=== PATIENT | male | born 1960 | race Caucasian/White ===

== ENCOUNTER 2020-01-27 06:08 | Day surgery (SDC) | payer OTHER ==
[~2020-01-27] VITALS: Ht 170.2 cm; Wt 97.5 kg
[~2020-01-27 06:08] MED LIST: CELE1CAP4 PO; FORT10GE TD; OMEP1CAP73 PO; RANI15TA PO
[2020-01-27] MEDS ORDERED: EPINEPHrine INJ 1 MG/ML 1ML AMP ONE (06:09)
[2020-01-27] MEDS ORDERED: LIDOCAINE 1% MDV 20ML VIAL ONE (06:09)
[2020-01-27] MEDS ORDERED: ROPIvacaine 0.5% 30ML INJECTION (J2795 PER 1MG) ONE (06:09)
[2020-01-27] MEDS ORDERED: fentaNYL 100 MCG/2 ML INJECTION (J3010) As Ordered ONE ×2 (06:42→07:08)
[2020-01-27] MEDS ORDERED: MIDAZOLAM INJ 2MG/2ML VIAL (J2250 PER 1MG) As Ordered ONE ×2 (06:42→07:08)
[2020-01-27] MEDS ORDERED: ceFAZolin SOD 2 GM in IV 1 EA IV ONE (07:00)
[2020-01-27] MEDS ORDERED: LR 1,000 ML IV ONE (07:00)
[2020-01-27] MEDS ORDERED: LIDOCAINE 2% 100MG/5ML SDV (FOR ANES.) As Ordered ONE (07:08)
[2020-01-27] MEDS ORDERED: ONDANSETRON 4MG/2ML VIAL As Ordered ONE (07:08)
[2020-01-27] MEDS ORDERED: ROCURONIUM BROMIDE 50 MG/5 ML VIAL As Ordered ONE (07:08)
[2020-01-27] MEDS ORDERED: dexameTHASONE 4 MG/ML 1ML VIAL (J1100 PER 1MG) As Ordered ONE (07:08)
[2020-01-27] MEDS ORDERED: propofoL 200 MG/20 ML VIAL As Ordered ONE (07:08)
[2020-01-27] MEDS ORDERED: EPINEPHrine INJ 1 MG/ML 1ML AMP As Ordered ONE (07:11)
[2020-01-27] MEDS ORDERED: fentaNYL 100 MCG/2 ML INJECTION (J3010) IV ONE (07:45)
[2020-01-27] MEDS ORDERED: MIDAZOLAM INJ 2MG/2ML VIAL (J2250 PER 1MG) IV ONE (07:45)
[2020-01-27] MEDS ORDERED: ACETAMINOPHEN 1000MG 100ML IV BTL (OFIRMEV) (J0131 PER 10MG) As Ordered ONE (07:52)
[2020-01-27] MEDS ORDERED: KETAMINE HCL 200 MG/20 ML VIAL As Ordered ONE (08:06)
[2020-01-27] MEDS ORDERED: SUGAMMADEX SODIUM 500 MG/5 ML VIAL (BRIDION) As Ordered ONE (08:07)
[2020-01-27] MEDS ORDERED: KETOROLAC 60MG 2ML VIAL As Ordered ONE (08:07)
[2020-01-27] MEDS ORDERED: HYDROmorphone HCL 2 MG/ML 1ML VIAL (J1170) As Ordered ONE (08:12)
[2020-01-27] MEDS ORDERED: ONDANSETRON 4MG/2ML VIAL IV PRN (11:00)
[2020-01-27] MEDS ORDERED: fentaNYL 100 MCG/2 ML INJECTION (J3010) IV PRN (11:00)
[2020-01-27] MEDS ORDERED: oxyCODONE 5MG TAB PO PRN (11:00)
[2020-01-27] MEDS ORDERED: LR 1,000 ML IV SCH ×2 (11:00)
[2020-01-27 12:30] VITALS: BP 109/76
--- NOTE | 2020-01-28 07:18 | RO ---
DATE OF OPERATION: 01/27/2020 PREOPERATIVE DIAGNOSIS: 1. Left shoulder partial thickness rotator cuff tear. 2. Left shoulder impingement. 3. Left shoulder acromioclavicular (AC) joint arthritis. 4. Left shoulder biceps tendinopathy. POSTOPERATIVE DIAGNOSIS: 1. Left shoulder partial thickness rotator cuff tear. 2. Left shoulder impingement. 3. Left shoulder acromioclavicular (AC) joint arthritis. 4. Left shoulder biceps tendinopathy. PROCEDURE: 1. Left shoulder arthroscopic rotator cuff repair (subscapularis). 2. Left shoulder arthroscopic rotator cuff debridement (supraspinatus). 3. Left shoulder open subpectoral biceps tenodesis. 4. Left shoulder arthroscopic subacromial decompression with acromioplasty. 5. Left shoulder arthroscopic distal clavicle excision. IMPLANTS: Arthrex 4.75 mm PEEK SwiveLock anchor times 1 and Arthrex proximal biceps button times 1. CLOSURE: Monocryl and nylon. PROCEDURE: The patient identified in the preoperative holding area. The left shoulder was marked. He was reporting increasing pain in the area of his AC joint. He did have advanced AC joint arthritis on his x-ray and MRI. Written informed consent had been obtained for surgery previously. After marking the left shoulder, he had an interscalene nerve block by anesthesia. He was brought to the operating room and placed supine on a well-padded OR table. General anesthesia was induced. Examination under anesthesia revealed 160 degrees of forward flexion, 80 of external rotation of the arm at his side, 70 of external rotation with the shoulder at 90. During the examination under anesthesia with steady forward flexion, very gentle manipulation was performed; very small audible pop and now I can get the patient to 180 degrees of forward flexion. There is no increased anterior posterior translation on the loading shift test. The left arm was then placed into the Arthrex STaR sleeve lateral decubitus traction peraza. He was placed into the right side down lateral decubitus position on the beanbag with an axillary roll and all bony prominences were well padded. Bilateral SCDs were for deep venous thrombosis (DVT) prophylaxis. He had 10 pounds of traction on the left arm. After being secured to the OR table, the left shoulder was prepped and draped in a normal sterile fashion with ChloraPrep. He received appropriate IV antibiotics within one hour of incision. Time-out performed per hospital protocol. Bert Foremna was present for the entire procedure and participated in all central portions of the procure. This included the patients positioning and draping, holding the arthroscope, holding retractors during the biceps tenodesis, assisting with whip stitching the biceps tendon and performed the wound closure. During the remainder of the case, he was used for passing instruments, providing rotation to the arm and performed a definitive wound closure, applied the dressing and brace. He also assisted on the rotator cuff repair using the mallet and awl to create a socket for the anchor and then he assisted with retracting soft tissues to improve visualization. The left shoulder was insufflated with lactated Ringers. A standard posterior viewing portal made with an 11 blade. A 30 degree arthroscope introduced into the joint. Diagnostic arthroscopy was carried out revealing very mild chondromalacia in the posterior humeral head. No significant chondromalacia in the glenoid. There is free edge tearing of the anterior and superior labrum. The long head of the biceps was thickened as it attached onto the superior labrum. There was a longitudinal split tear of the subscapularis from lateral to medial and it was also lifted off. There was a very low-grade, partial articular tear of the supraspinatus. A spinal needle was used to localize the anterior portal to give a good angle of the subscapularis repair, as well as for the distal clavicle excision. A purple Arthrex cannula was placed through the rotator interval. In order to perform the subscapularis repair arthroscopically, I had to perform a tenotomy at the long head of the biceps that was done with a meniscal bitter. The shaver was used to remove tendon fragments and debride the stump. I then dbrided the superior and anterior labral fraying. A rotator interval release was also performed to help decrease external rotation stiffness. The supraspinatus tear was dbrided with the shaver. This was very low-grade, well less than 5%. It was just the very articular surface was frayed. The posterior supraspinatus, the infraspinatus and teres minor were all intact. I then created an accessory superolateral portal, localized with a spinal needle and the cannula was placed through that. The ring curette and shaver were used to clear off soft tissue and to scrape the bone at the lesser tuberosity to create a bleeding surface. The subscapularis tear proximally had lifted off of the lesser tuberosity, but there was also a lateral to medial longitudinal split. So I used the Scorpion to pass FiberTape through the upper and middle portions of the tear on each side of that split. So this was ultimately passed in a horizontal mattress fashion. Then the sutures were shaved out the initial anterior portal and loaded through a 4.75 mm PEEK SwiveLock anchor. An awl was used to create a socket in the lesser tuberosity. The anchor was docked, suture was tensioned and the anchor inserted by hand with excellent fixation. This nicely restored the subscapularis to the lesser tuberosity. The shoulder joint was irrigated and drained. We then proceeded with an open biceps tenodesis. 3 cm incision made with the 15 blade just lateral to the axilla. Dissection with Metzenbaum scissors and cautery down to the deep fascia which was open with cautery. The long head of the biceps was dissected out with the right angle clamp. There was thickening and anterior substance tearing and tendinopathy at the long head of the biceps. The Arthrex proximal biceps kit was opened. A running locking whip stitch placed with the FiberLoop. Excess tendon trimmed and sent to pathology per hospital protocol. Sutures were loaded through the biceps button per routine. The spade tip drill bit was used to create unicortical drill hole within the bicipital groove and irrigation used to remove bony debris. Button passed through the drill hole on the trench pipe layer helper. Sutures were tied, flipped the button and reduced the tendon to the tuberosity. The curve free needle was used to pass one limb of suture back through the tendon and also tied by hand to lock the construct in place. This nicely restored the resting tension of the long head of the biceps. The incision was extensively irrigated and then closed in a layered fashion with 2-0 Vicryl, 2-0 Vicryl and a running Monocryl. At the end of the case, Steri-Strips were placed. The arthroscope was now placed into the subacromial space where there was dense bursitis and bursal sided fraying of the supraspinatus. A lateral working portal was established and I performed a bursectomy with the shaver. The CL ligament was partially released and there was a moderate size subacromial spur. The bur was used to perform a formal acromioplasty turning this into a type 1 morphology. Shaver used to remove bony debris. Attention was then turned to the AC joint where there was bone on bone contact; and through the anterior portal, the bur was used to remove approximately 6 to 7 mm of the distal clavicle. The scope was intermittently placed through the anterior portal to assure all posterior and superior bone had been removed and no residual impingement. The shaver was again used to remove bony debris. I then used the shaver to perform a gentle cautious debridement of the bursal sided supraspinatus tearing. This tearing was at the far lateral footprint and I would estimate the degree of tearing to be about 20%. So following the debridement, the remaining supraspinatus tissue appeared to be overall good quality tissue. The shoulder was then gently internally and externally rotated. There was no liftoff or buckling. I gently abducted and adducted the shoulder and there was no telescoping of the supraspinatus. I then palpated the supraspinatus and infraspinatus with a switching stick. There were no high- grade tear and certainly no complete tears. Having done and extensive decompression and a nice debridement here, I did not feel that completing the tear and then proceeding with a supraspinatus repair were appropriate. So, the shoulder was irrigated and drained at this point. Portal was closed with nylon suture, bulky sterile dressing applied and then he was placed into the R2 sling. At the time of this dictation, the patient was extubated and then transferred to the PACU. DISPOSITION: The patient will start physical therapy approximately two weeks postop. Passive range of motion only until 8 weeks and then he can start active assistive range of motion. No active range of motion until 12 weeks postop. No rotator cuff strengthen until 4 months. MTDD
== END 2020-01-27 12:30 | disposition home or self-care (01) ==
LOC: M SDC 06:08
PROVIDERS: ATTEND Orthopaedic Surgery
DX: M75.112 Incomplete rotator cuff tear or rupture of left shoulder, not specified as traumatic (principal); M75.42 Impingement syndrome of left shoulder; M19.012 Primary osteoarthritis, left shoulder; M75.22 Bicipital tendinitis, left shoulder; K21.9 Gastro-esophageal reflux disease without esophagitis; F17.290 Nicotine dependence, other tobacco product, uncomplicated; Z88.0 Allergy status to penicillin; Z79.899 Other long term (current) drug therapy
CPT/HCPCS: 23430; 29823; 29824; 29826; 29827; 64415; 88304; C1713; J0131; J0171; J0690; J1100; J1170; J1885; J2250; J2405; J2795; J3010

== ENCOUNTER 2022-07-12 07:54 | Day surgery (SDC) | payer OTHER ==
[~2022-07-12] VITALS: Ht 172.7 cm; Wt 101.6 kg
[~2022-07-12 07:54] MED LIST changes: +NS 1,000 ML IV ONE
[2022-07-12] MEDS ORDERED: propofoL 200 MG/20 ML VIAL As Ordered ONE (08:50)
[2022-07-12] MEDS ORDERED: LIDOCAINE 2% 100MG/5ML SDV (FOR ANES.) As Ordered ONE (08:50)
[2022-07-12 09:20] VITALS: BP 123/73
== END 2022-07-12 09:26 | disposition home or self-care (01) ==
LOC: M OPP 07:54
PROVIDERS: ATTEND Surgery
DX: Z12.11 Encounter for screening for malignant neoplasm of colon (principal); Z86.010 Personal history of colon polyps; Z80.0 Family history of malignant neoplasm of digestive organs; K63.5 Polyp of colon; K57.30 Diverticulosis of large intestine without perforation or abscess without bleeding; K21.9 Gastro-esophageal reflux disease without esophagitis; Z87.891 Personal history of nicotine dependence; Z79.1 Long term (current) use of non-steroidal anti-inflammatories (NSAID); Z79.890 Hormone replacement therapy; Z79.899 Other long term (current) drug therapy; Z88.0 Allergy status to penicillin

== ENCOUNTER 2024-03-23 06:57 | Emergency (ER) | payer OTHER ==
[~2024-03-23] VITALS: Ht 170.2 cm; Wt 104.9 kg
[~2024-03-23 06:57] MED LIST changes: -NS 1,000 ML IV ONE
[2024-03-23] MEDS ORDERED: EXCETAB32 PO (07:07)
[2024-03-23] MEDS ORDERED: BENZ200C70 PO (07:07)
[2024-03-23] MEDS ORDERED: CEFD300CAP PO (07:07)
[2024-03-23] MEDS ORDERED: AZIT-12 PO (07:07)
[2024-03-23 07:56] LABS: BASO # 0.1 10^3/uL (0.0-0.2); EOS # 0.2 10^3/uL (0.0-0.5); EOS % 2.2 % (0.0-3.0); HEMOGLOBIN 14.8 g/dl (13.5-17.5); LYMPH # 2.5 10^3/uL (1.5-5.0); LYMPH % 28.6 % (24.0-44.0); MEAN CORPUSCULAR HGB CONC 32.9 g/dl (32.0-36.5); MEAN CORPUSCULAR VOLUME 91.1 fl (80.0-96.0); MONO # 0.8 10^3/uL (0.0-0.8); MONO % 9.3 % (2.0-8.0); NEUTROPHILS # 5.2 10^3/uL (1.5-8.5); NEUTROPHILS % 58.7 % (36.0-66.0); PLATELET COUNT, AUTOMATED 233 10^3/uL (150-450); RED BLOOD COUNT 4.94 10^6/uL (4.30-6.10); WHITE BLOOD COUNT 8.8 10^3/uL (4.0-10.0)
[2024-03-23 08:37] LABS: CK-MB VALUE MASS 1.3 NG/ML (<3.6)
[2024-03-23 08:38] LABS: ALBUMIN 3.3 G/DL (3.2-5.2); ALKALINE PHOSPHATASE 63 U/L (40-129); ALT/SGPT 33 U/L (7.0-40); AST/SGOT 17 U/L (<34); BILIRUBIN,DIRECT 0.1 MG/DL (<0.4); BILIRUBIN,TOTAL 0.4 MG/DL (0.3-1.2); BLOOD UREA NITROGEN 25 MG/DL (9-23); CALCIUM LEVEL 9.2 MG/DL (8.3-10.6); CARBON DIOXIDE LEVEL 24 MMOL/L (20-31); CHLORIDE LEVEL 109 MMOL/L (98-107); CREATININE FOR GFR 0.83 MG/DL (0.70-1.30); GLOMERULAR FILTRATION RATE > 60.0 (>49); GLUCOSE, FASTING 117 MG/DL (74-106); POTASSIUM SERUM 4.3 MMOL/L (3.5-5.1); SODIUM LEVEL 142 MMOL/L (136-145); TOTAL PROTEIN 6.4 G/DL (5.7-8.2)
[2024-03-23 08:45] LABS: CPK CREATINE PHOSPHOKINASE 151 U/L (46-171); MB/CK RELATIVE INDEX 0.86 (< OR =4)
[2024-03-23 09:04] VITALS: O2SAT 93
[2024-03-23] MEDS: ALBUTEROL SULFATE 2.5MG/0.5ML INH NEB SOLN NEB ONE (09:30)
[2024-03-23 10:00] VITALS: BP 121/74; TEMP 96.5; O2SAT 94
== END 2024-03-23 10:24 | disposition home or self-care (01) ==
LOC: M ED 06:57
DX: J20.9 Acute bronchitis, unspecified (principal); R94.31 Abnormal electrocardiogram [ECG] [EKG]; Z87.891 Personal history of nicotine dependence; Z88.0 Allergy status to penicillin; Z79.1 Long term (current) use of non-steroidal anti-inflammatories (NSAID); Z79.2 Long term (current) use of antibiotics; Z79.899 Other long term (current) drug therapy

== ENCOUNTER → 2024-07-28 | Outpatient (CLI) | payer OTHER ==
[~2024-07-28] MED LIST changes: +AZIT-12 PO; +BENZ200C70 PO; +CEFD300CAP PO; +EXCETAB32 PO; +ISOVUE-370 76% 100ML VIAL As Ordered ONE
== END ==
LOC: M RAD 08:00
PROVIDERS: ATTEND Internal Medicine Cardiovascular Disease
DX: R07.89 Other chest pain (principal); R06.02 Shortness of breath

== ENCOUNTER → 2024-08-12 | Outpatient (CLI) | payer OTHER ==
[~2024-08-12] MED LIST changes: -ISOVUE-370 76% 100ML VIAL As Ordered ONE
== END ==
LOC: M RAD 07:57
PROVIDERS: ATTEND Internal Medicine Cardiovascular Disease
DX: Z72.0 Tobacco use (principal)

== ENCOUNTER → 2024-11-23 | Outpatient (CLI) | payer OTHER | LOC: M CARPUL 14:50 | PROVIDERS: ATTEND Internal Medicine Cardiovascular Disease | DX: R07.89 Other chest pain (principal); R00.2 Palpitations; R06.02 Shortness of breath ==